=== PATIENT | male | born 1945 ===

== ENCOUNTER 2017-04-12 09:00 | Outpatient (RCR) | payer OTHER | END 2017-05-09 | disposition home or self-care (01) | LOC: PTY 09:00 | DX: M17.12 Unilateral primary osteoarthritis, left knee (principal) | CPT/HCPCS: 97110; 97140; 97162; G0283 ==

== ENCOUNTER 2017-05-10 10:13 | Outpatient (RCR) | payer OTHER | END 2017-06-09 | disposition home or self-care (01) | LOC: PTY 10:13 | DX: M17.12 Unilateral primary osteoarthritis, left knee (principal) | CPT/HCPCS: 97110; 97140; G0283 ==

== ENCOUNTER 2017-07-19 10:13 | Outpatient (RCR) | payer OTHER | END 2017-08-09 | disposition home or self-care (01) | LOC: PTY 10:13 | DX: M17.12 Unilateral primary osteoarthritis, left knee (principal); Z85.46 Personal history of malignant neoplasm of prostate ==

== ENCOUNTER 2017-08-15 11:00 | Outpatient (RCR) | payer OTHER | END 2017-09-08 | disposition home or self-care (01) | LOC: PTY 11:00 | DX: M17.12 Unilateral primary osteoarthritis, left knee (principal) ==